=== PATIENT | female | born 1980 | race Caucasian/White ===

== ENCOUNTER → 2020-06-27 | Outpatient (CLI) | payer BC ==
[~2020-06-27] MED LIST: GLUCOPHAGE500 MG PO; XALATAN OP SOL2.5 ML OU
[2020-06-27 07:32] LABS: BUN/CREATININE RATIO 21 (0-10)
== END ==
LOC: LAB 06:52
PROVIDERS: Family Medicine
DX: R73.03 Prediabetes (principal)
CPT/HCPCS: 80048; 83036

== ENCOUNTER → 2021-10-14 | Outpatient (CLI) | payer BC | LOC: LAB 13:26 | DX: R05.9 Cough, unspecified (principal) | CPT/HCPCS: 87081; 87880 ==